=== PATIENT | female | born 1965 | race Caucasian/White ===

== ENCOUNTER 2017-01-08 16:34 | Emergency (ER) | payer OTHER ==
[~2017-01-08] VITALS: Ht 175.3 cm; Wt 79.4 kg
[~2017-01-08 16:34] MED LIST: LEVO0.124 PO; METO25TA PO
[2017-01-08 16:51] VITALS: BP 120/79
--- NOTE | 2017-01-08 18:40 | NUR ---
Patient to bed 03.
--- NOTE | 2017-01-08 18:45 | NUR ---
PT PRESENTS TO ER W/C/O LEFT HIP PAIN X2 WEEKS. PT DENIES ANY FALL OR TRAUMA. HX SLE. DENIES N/V/D; SKIN IS PINK/WARM/DRY; AAOX4 WITH EVEN AND STEADY GAIT; LUNGS CLEAR BL; HR EVEN AND REGULAR; PT DENIES ANY FEVER, CP, SOB, OR COUGH AT THIS TIME; PATIENT STATES PAIN OF 7/10 AT THIS TIME; VSS; PATIENT POSITIONED FOR COMFORT; HOB ELEVATED; BEDRAILS UP X2; BED DOWN. ER MD MADE AWARE OF PT STATUS.
--- NOTE | 2017-01-08 18:52 | NUR ---
Dr. York evaluating patient at bedside.
[2017-01-08] MEDS ORDERED: KETOROLAC 60 MG/2 ML VIAL IM ONE ×2 (18:55→19:06)
[2017-01-08 19:30] VITALS: BP 124/82
--- NOTE | 2017-01-08 19:30 | NUR ---
Patient discharged with v/s stable. Written and verbal after care instructions given and explained. Patient alert, oriented and verbalized understanding of instructions. Ambulatory with steady gait. All questions addressed prior to discharge. ID band removed. Patient advised to follow up with PMD. Rx of PREDNISONE 50MG AND MOTRIN 800MG given. Patient educated on indication of medication including possible reaction and side effects. Opportunity to ask questions provided and answered.
== END 2017-01-08 19:30 | disposition home or self-care (01) ==
LOC: MED 16:34
DX: S76.012A Strain of muscle, fascia and tendon of left hip, initial encounter (principal); I10 Essential (primary) hypertension; Z88.6 Allergy status to analgesic agent; Z88.8 Allergy status to other drugs, medicaments and biological substances; X58.XXXA Exposure to other specified factors, initial encounter; Y93.89 Activity, other specified; Y92.89 Other specified places as the place of occurrence of the external cause; Y99.8 Other external cause status
CPT/HCPCS: 73502; 96372; 99284; J1885

== ENCOUNTER 2017-02-23 18:50 | Emergency (ER) | payer OTHER ==
[~2017-02-23] VITALS: Ht 175.3 cm; Wt 79.1 kg
[2017-02-23 18:58] VITALS: BP 138/69
--- NOTE | 2017-02-23 20:10 | NUR ---
Patient to bed 07.
--- NOTE | 2017-02-23 20:19 | NUR ---
PATIENT PRESENTS TO ED WITH 52F BIB C/O POSTERIOR R KNEE PAIN X YESTERDAY WITH NAUSEA; PT STATES NO TRAUMA OR INJURY TO SITE AT THIS TIME. PT DENIES FALL. HX: TACHYCARIDA, LUPUS,THYROIDECTOMY PT STATES I WANT TO BE CHECK FOR DVT,DENIES V/D; SKIN IS PINK/WARM/DRY; AAOX4 WITH EVEN AND STEADY GAIT; LUNGS CLEAR BL; HR EVEN AND REGULAR; PT DENIES ANY FEVER, CP, SOB, OR COUGH AT THIS TIME; PATIENT STATES PAIN OF 9/10 AT THIS TIME; PATIENT POSITIONED FOR COMFORT; HOB ELEVATED; BEDRAILS UP X2; BED DOWN.
--- NOTE | 2017-02-23 20:46 | NUR ---
DR. FLORIAN AT BEDSIDE
[2017-02-23] MEDS ORDERED: oxyCODONE/APAP 5/325 MG 1 TAB TAB PO ONE (20:50)
[2017-02-23] MEDS ORDERED: ONDANSETRON 4 MG ODT PO ONE ×2 (20:50→22:20)
[2017-02-23 21:03] LABS: BASOPHILS # (AUTO) 0.2 K/uL (0.00-0.22); BASOPHILS % (AUTO) 2.2 % (0.0-2.0); EOSINOPHILS # (AUTO) 0.2 K/uL (0-0.4); EOSINOPHILS % (AUTO) 2.3 % (0.0-4.0); HEMOGLOBIN 14.6 g/dL (12.0-16.0); LYMPHOCYTES # (AUTO) 2.2 K/uL (2.5-16.5); LYMPHOCYTES % (AUTO) 30.1 % (20.5-51.1); MEAN CORPUSCULAR HEMOGLOBIN 31 pg (27-31); MEAN CORPUSCULAR HGB CONC 33 g/dL (33-37); MEAN CORPUSCULAR VOLUME 95 fL (80-94); MONOCYTES # (AUTO) 0.4 K/uL (0.8-1.0); MONOCYTES % (AUTO) 5.2 % (1.7-9.3); NEUTROPHILS # (AUTO) 4.5 K/uL (1.8-7.7); NEUTROPHILS % (AUTO) 60.2 % (42.2-75.2); PLATELET COUNT (AUTO) 228 K/uL (140-450); RED BLOOD CELL COUNT(AUTO) 4.65 MIL/uL (4.20-5.40); RED CELL DISTRIBUTION WIDTH 13.7 % (11.6-13.7); WHITE BLOOD COUNT (AUTO) 7.5 K/uL (4.8-10.8)
--- NOTE | 2017-02-23 21:16 | NUR ---
PILLOW CASE APPLIED IN BETWEEN LEGS, AND MAKE PT COMFORTABLE
--- NOTE | 2017-02-23 21:39 | NUR ---
INFORMED DR. FLORIAN PT IS STILL IN A LOT OF PAIN, US AT BEDSIDE
[2017-02-23] MEDS ORDERED: KETOROLAC 60 MG/2 ML VIAL IM ONE (21:40)
[2017-02-23 21:53] LABS: ANION GAP 11.3 (8-16); CALCIUM 8.5 mg/dL (8.5-10.1); CARBON DIOXIDE 29.9 mmol/L (21-32); CREATININE 0.9 mg/dL (0.6-1.3); POTASSIUM 4.2 mmol/L (3.5-5.1)
[2017-02-23 22:00] LABS: ALBUMIN 4.2 g/dL (3.4-5.0); TOTAL BILIRUBIN 0.2 mg/dL (0.0-1.0); TOTAL PROTEIN, SERUM 6.9 g/dL (6.4-8.2)
--- NOTE | 2017-02-23 22:05 | NUR ---
PT CRYING REQUEST DILAUDID WITH TORADOL PER PT SHE USED TO TAKE THAT WHEN SHE HAD LUPUS, WILL INFORM DR. FLORIAN
[2017-02-23] MEDS ORDERED: HYDROmorphone PFS 4 MG/ML SYR IM ONE ×2 (22:10→23:35)
--- NOTE | 2017-02-23 22:35 | NUR ---
DR. FLORIAN AT BEDSIDE
--- NOTE | 2017-02-23 22:40 | NUR ---
ANOTHER PILLOW PUT ON RIGHT LEG, PT AAO, FAMILY AT BEDSIDE
--- NOTE | 2017-02-23 23:52 | NUR ---
DR. FLORIAN AT BEDSIDE
[2017-02-24 00:24] VITALS: BP 117/60
--- NOTE | 2017-02-24 00:25 | NUR ---
Patient discharged with v/s stable. Written and verbal after care instructions given and explained. Patient alert, oriented and verbalized understanding of instructions. Ambulatory with steady gait. All questions addressed prior to discharge. ID band removed. Patient advised to follow up with PMD. Rx of DICLOFENAC AND NORCO given. Patient educated on indication of medication including possible reaction and side effects. Opportunity to ask questions provided and answered.
== END 2017-02-24 00:25 | disposition home or self-care (01) ==
LOC: MED 18:52
DX: M71.22 Synovial cyst of popliteal space [Baker], left knee (principal); I10 Essential (primary) hypertension; L93.0 Discoid lupus erythematosus; Z88.5 Allergy status to narcotic agent; Z88.8 Allergy status to other drugs, medicaments and biological substances; F17.210 Nicotine dependence, cigarettes, uncomplicated
CPT/HCPCS: 36415; 73562; 80053; 84550; 85025; 85379; 93971; 96372; 99285; J1170; J1885; Q0092; S0119

== ENCOUNTER 2017-03-18 19:31 | Emergency (ER) | payer OTHER ==
[~2017-03-18] VITALS: Ht 175.3 cm; Wt 77.1 kg
[2017-03-18 19:42] VITALS: BP 129/81
--- NOTE | 2017-03-18 20:52 | NUR ---
PATIENT LEFT WITHOUT BEING SEEN BY DR. NAILS. NO FURTHER CARE PROVIDED FOR PATIENT.
== END 2017-03-18 20:52 | disposition left against medical advice (07) ==
LOC: MED 19:31
DX: M79.604 Pain in right leg (principal); Z53.21 Procedure and treatment not carried out due to patient leaving prior to being seen by health care provider

== ENCOUNTER 2017-04-04 13:14 | Emergency (ER) | payer OTHER ==
[~2017-04-04] VITALS: Ht 172.7 cm; Wt 76.3 kg
--- NOTE | 2017-04-04 14:00 | NUR ---
NO ANSWER IN ER LOBBY
[2017-04-04 14:21] VITALS: BP 113/92
--- NOTE | 2017-04-04 15:35 | NUR ---
AMBULATED TO ER BED 5
--- NOTE | 2017-04-04 15:39 | NUR ---
Patient being evaluated by physician at bedside.
[2017-04-04] MEDS ORDERED: HYDROcodone/APAP 10/325 MG 1 TAB TAB PO PRN (15:40)
[2017-04-04] MEDS ORDERED: ONDANSETRON 4 MG ODT SL PRN (15:40)
[2017-04-04] MEDS ORDERED: LORazepam 2 MG/ML VIAL IM ONE (16:20)
--- NOTE | 2017-04-04 16:36 | NUR ---
Patient discharged with v/s stable. Written and verbal after care instructions given and explained. Patient alert, oriented and verbalized understanding of instructions. Ambulatory with steady gait WITH . All questions addressed prior to discharge. ID band removed. Patient advised to follow up with PMD. Rx of NORCO 5-325, KEFLEX, CORTISPORIN, AND ZOFRAN ODT given. Patient educated on indication of medication including possible reaction and side effects. Opportunity to ask questions provided and answered.
[2017-04-04 16:37] VITALS: BP 121/79
== END 2017-04-04 16:37 | disposition home or self-care (01) ==
LOC: MED 13:14
DX: H60.8X2 Other otitis externa, left ear (principal); H66.92 Otitis media, unspecified, left ear; I10 Essential (primary) hypertension; F41.9 Anxiety disorder, unspecified; Z88.5 Allergy status to narcotic agent; Z88.8 Allergy status to other drugs, medicaments and biological substances
CPT/HCPCS: 96372; 99283; J2060; S0119

== ENCOUNTER 2017-05-18 20:00 | Emergency (ER) | payer OTHER ==
[~2017-05-18] VITALS: Ht 175.3 cm; Wt 75.4 kg
[2017-05-18 20:08] VITALS: BP 122/74
[2017-05-18] MEDS ORDERED: ALBUTEROL SULFATE/IPRATROPIU 3 ML SOL IH ONE (20:30)
--- NOTE | 2017-05-18 20:30 | NUR ---
PT TAKEN TO OVERFLOW
--- NOTE | 2017-05-18 20:44 | NUR ---
RT WITH PATIENT FOR TREATMENT
--- NOTE | 2017-05-18 20:51 | NUR ---
52/F c/o toothache and bilateral ear pain x2 days and SOB today. Hx Lupus, hypothyroid. AOX4, no distress noted. Respirations even and unlabored, wheezing all throughout x5 lobes. Chest rises and falls symmetrically. VSS.
--- NOTE | 2017-05-18 21:00 | NUR ---
Patient being evaluated by Dr. Kraft in overflow.
--- NOTE | 2017-05-18 21:00 | NUR ---
Ramon lowry in ED - 05/18/[address] at [address] Kraft evaluating patient
[2017-05-18] MEDS ORDERED: oxyCODONE/APAP 5/325 MG 1 TAB TAB PO ONE ×2 (21:10→22:05)
[2017-05-18] MEDS ORDERED: predniSONE 20 MG TAB PO ONE (21:10)
--- NOTE | 2017-05-18 21:24 | NUR ---
PT TAKEN TO XRAY
--- NOTE | 2017-05-18 21:32 | NUR ---
Pt back from x-ray
[2017-05-18] MEDS ORDERED: HYDROmorphone PFS 2 MG/ML SYR IM ONE (22:05)
--- NOTE | 2017-05-18 22:14 | NUR ---
PHLEB WITH PT FOR LAB DRAWS
[2017-05-18 22:26] LABS: BASOPHILS # (AUTO) 0.2 K/uL (0.00-0.22); BASOPHILS % (AUTO) 1.6 % (0.0-2.0); EOSINOPHILS # (AUTO) 0.1 K/uL (0-0.4); EOSINOPHILS % (AUTO) 0.9 % (0.0-4.0); HEMATOCRIT 43.9 % (36-48); HEMOGLOBIN 14.9 g/dL (12.0-16.0); LYMPHOCYTES # (AUTO) 1.1 K/uL (2.5-16.5); LYMPHOCYTES % (AUTO) 9.9 % (20.5-51.1); MEAN CORPUSCULAR HEMOGLOBIN 32 pg (27-31); MEAN CORPUSCULAR HGB CONC 34 g/dL (33-37); MEAN CORPUSCULAR VOLUME 96 fL (80-94); MONOCYTES # (AUTO) 0.9 K/uL (0.8-1.0); MONOCYTES % (AUTO) 8.2 % (1.7-9.3); NEUTROPHILS # (AUTO) 8.7 K/uL (1.8-7.7); NEUTROPHILS % (AUTO) 79.4 % (42.2-75.2); PLATELET COUNT (AUTO) 198 K/uL (140-450); RED CELL DISTRIBUTION WIDTH 12.7 % (11.6-13.7)
[2017-05-18 22:35] LABS: ANION GAP 6.8 (8-16); CARBON DIOXIDE 29.7 mmol/L (21-32); CREATININE 0.8 mg/dL (0.6-1.3); POTASSIUM 3.5 mmol/L (3.5-5.1)
[2017-05-18 22:43] LABS: ALBUMIN 4.3 g/dL (3.4-5.0); TOTAL BILIRUBIN 0.4 mg/dL (0.0-1.0)
--- NOTE | 2017-05-18 22:51 | NUR ---
Dr. Kraft re-evaluating pt in overflow chair.
[2017-05-18 23:02] VITALS: BP 111/63
--- NOTE | 2017-05-18 23:02 | NUR ---
Patient discharged with v/s stable. Written and verbal after care instructions given and explained. Patient alert, oriented and verbalized understanding of instructions. Ambulatory with steady gait. All questions addressed prior to discharge. ID band removed. Patient advised to follow up with PMD. Rx of Prednisone 20mg, Augmentin 875mg, Tylenol with Codeine #4 given. Patient educated on indication of medication including possible reaction and side effects. Opportunity to ask questions provided and answered.
== END 2017-05-18 23:02 | disposition home or self-care (01) ==
LOC: MED 20:00
DX: J44.1 Chronic obstructive pulmonary disease with (acute) exacerbation (principal); K02.9 Dental caries, unspecified; K04.7 Periapical abscess without sinus; I10 Essential (primary) hypertension; F17.200 Nicotine dependence, unspecified, uncomplicated; Z71.6 Tobacco abuse counseling; Z90.89 Acquired absence of other organs; Z90.710 Acquired absence of both cervix and uterus; Z88.5 Allergy status to narcotic agent
CPT/HCPCS: 36415; 71010; 80053; 85025; 94640; 96372; 99285; J1170; J7512; J7620

== ENCOUNTER 2017-10-07 21:40 | Emergency (ER) | payer OTHER ==
[~2017-10-07] VITALS: Ht 175.3 cm; Wt 72.6 kg
[2017-10-07 21:43] VITALS: BP 105/66
--- NOTE | 2017-10-07 22:19 | NUR ---
PATIENT AMBULATED TO ER BED 2
--- NOTE | 2017-10-07 22:20 | NUR ---
52 Y/O F W/C/O LOWER ABD PAIN CRAMPING WITH DIARRHEA SINCE THIS MORNING. ALSO REPORTS BLISTERS X 1 WEEK. DENIES FEVERS/CHILLS. MED HX: LUPUS, TACHYCARDIA, THYROID REMOVED. RX: LEVOTHYROXINE, METOPROLOL,
[2017-10-07] MEDS ORDERED: NACL 0.9% 1,000 ML IV ONE (22:40)
[2017-10-07 23:03] LABS: BASOPHILS # (AUTO) 0.2 K/uL (0.00-0.22); EOSINOPHILS # (AUTO) 0.1 K/uL (0-0.4); EOSINOPHILS % (AUTO) 0.8 % (0.0-4.0); HEMATOCRIT 44.3 % (36-48); HEMOGLOBIN 14.6 g/dL (12.0-16.0); LYMPHOCYTES # (AUTO) 0.8 K/uL (2.5-16.5); MEAN CORPUSCULAR HEMOGLOBIN 31 pg (27-31); MEAN CORPUSCULAR HGB CONC 33 g/dL (33-37); MEAN CORPUSCULAR VOLUME 95 fL (80-94); MONOCYTES # (AUTO) 1.3 K/uL (0.8-1.0); NEUTROPHILS # (AUTO) 8.4 K/uL (1.8-7.7); NEUTROPHILS % (AUTO) 77.7 % (42.2-75.2); PLATELET COUNT (AUTO) 239 K/uL (140-450); RED BLOOD CELL COUNT(AUTO) 4.69 MIL/uL (4.20-5.40); RED CELL DISTRIBUTION WIDTH 11.9 % (11.6-13.7); WHITE BLOOD COUNT (AUTO) 10.8 K/uL (4.8-10.8)
[2017-10-07] MEDS ORDERED: METOCLOPRAMIDE 10 MG/2 ML INJ VIAL IVP ONE (23:05)
[2017-10-07] MEDS ORDERED: ONDANSETRON 4 MG/2 ML VIAL IVP ONE (23:05)
[2017-10-07] MEDS ORDERED: METOCLOPRAMIDE 10 MG/2 ML INJ VIAL ONE (23:09)
--- NOTE | 2017-10-07 23:15 | NUR ---
PT STATES HER ABD STILL HURST 02/03, ER MADE AWARE.
[2017-10-07 23:17] LABS: ANION GAP 15.2 (8-16); CARBON DIOXIDE 26.6 mmol/L (21-32); CREATININE 1.1 mg/dL (0.6-1.3); POTASSIUM 3.8 mmol/L (3.5-5.1)
[2017-10-07] MEDS ORDERED: methylPREDNISolone SS 125 MG/2 ML VIAL IVP ONE (23:20)
[2017-10-07 23:22] LABS: ALBUMIN 4.3 g/dL (3.4-5.0); LYMPHOCYTES % (AUTO) 7.5 % (20.5-51.1); TOTAL BILIRUBIN 0.7 mg/dL (0.0-1.0)
[2017-10-07] MEDS ORDERED: fentaNYL 0.05 MG/ML VIAL IVP ONE (23:50)
[2017-10-08 00:26] LABS: APPEARANCE,URINE SL CLOUDY (CLEAR); BILIRUBIN,URINE NEGATIVE (NEGATIVE); BLOOD, URINE NEGATIVE (NEGATIVE); COLOR,URINE YELLOW (YELLOW); LEUKOCYTE ESTERASE ,URINE NEGATIVE (NEGATIVE); NITRITE, URINE NEGATIVE (NEGATIVE); PH,URINE 5.5 (5.0-9.0); UGLUCOSE NEGATIVE (NEGATIVE)
--- NOTE | 2017-10-08 00:35 | NUR ---
PT STAYS HER PAIN HAS DECREASED 11/04. ER MD MADE AWARE.
[2017-10-08 01:13] VITALS: BP 114/79
--- NOTE | 2017-10-08 01:13 | NUR ---
Patient discharged with v/s stable. Written and verbal after care instructions given and explained. Patient verbalized understanding. Ambulatory with steady gait. All questions addressed prior to discharge. Advised to follow up with PMD.
== END 2017-10-08 01:13 | disposition home or self-care (01) ==
LOC: MED 22:16
DX: R19.7 Diarrhea, unspecified (principal); R10.30 Lower abdominal pain, unspecified; R11.0 Nausea; I10 Essential (primary) hypertension; Z88.5 Allergy status to narcotic agent; Z88.8 Allergy status to other drugs, medicaments and biological substances
CPT/HCPCS: 36415; 80053; 81003; 85025; 96361; 96374; 96375; 99284; J2765; J2930; J3010; 81025

== ENCOUNTER 2017-12-10 20:28 | Emergency (ER) | payer OTHER ==
[~2017-12-10] VITALS: Ht 175.3 cm; Wt 75.5 kg
[2017-12-10 20:35] VITALS: BP 135/96
--- NOTE | 2017-12-10 20:45 | NUR ---
ASSUMED CARE OF PT AT THIS TIME. C/O LEFT SIDED DENTAL X 3 DAYS. AAOX4 WITH EVEN AND STEADY GAIT; PATIENT STATES PAIN OF 8/10 AT THIS TIME; VSS; PATIENT POSITIONED FOR COMFORT; HOB ELEVATED; BEDRAILS UP X2; BED DOWN. ER MD MADE AWARE OF PT STATUS. WILL CONTINUE TO MONITOR.
[2017-12-10] MEDS ORDERED: KETOROLAC 60 MG/2 ML VIAL IM ONE (20:55)
[2017-12-10 22:04] VITALS: BP 135/96
== END 2017-12-10 22:04 | disposition home or self-care (01) ==
LOC: MED 20:28
DX: K04.7 Periapical abscess without sinus (principal); I10 Essential (primary) hypertension; E07.9 Disorder of thyroid, unspecified; F17.210 Nicotine dependence, cigarettes, uncomplicated; Z88.6 Allergy status to analgesic agent; Z88.8 Allergy status to other drugs, medicaments and biological substances
CPT/HCPCS: 96372; 99283; J1885

== ENCOUNTER 2018-09-21 18:59 | Emergency (ER) | payer OTHER ==
[~2018-09-21] VITALS: Ht 170.2 cm; Wt 72.6 kg
[2018-09-21 19:30] VITALS: BP 120/74
--- NOTE | 2018-09-21 21:13 | NUR ---
PT AMBULATED TO BED 4
[2018-09-21 22:35] VITALS: BP 122/71
--- NOTE | 2018-09-21 22:35 | NUR ---
Patient discharged with v/s stable. Written and verbal after care instructions given and explained. Patient alert, oriented and verbalized understanding of instructions. Ambulatory with steady gait. All questions addressed prior to discharge. ID band removed. Patient advised to follow up with PMD. Rx of MOTRIN AND AMOXICILLIN given. Patient educated on indication of medication including possible reaction and side effects. Opportunity to ask questions provided and answered.
== END 2018-09-21 22:35 | disposition home or self-care (01) ==
LOC: MED 18:59
DX: S93.601A Unspecified sprain of right foot, initial encounter (principal); K04.7 Periapical abscess without sinus; I10 Essential (primary) hypertension; Z79.899 Other long term (current) drug therapy; Z88.5 Allergy status to narcotic agent; Z88.8 Allergy status to other drugs, medicaments and biological substances; V49.9XXA Car occupant (driver) (passenger) injured in unspecified traffic accident, initial encounter; Y93.89 Activity, other specified; Y92.89 Other specified places as the place of occurrence of the external cause; Y99.8 Other external cause status
CPT/HCPCS: 73630; 96372; 99283

== ENCOUNTER 2022-01-08 21:13 | Emergency (ER) | payer MEDICAID, OTHER ==
[~2022-01-08] VITALS: Ht 175.3 cm; Wt 63.5 kg
[2022-01-08 21:25] VITALS: BP 122/88
--- NOTE | 2022-01-08 21:32 | NUR ---
patient to the bathroom for urine collection
--- NOTE | 2022-01-08 23:16 | NUR ---
CALLED FOR PATIENT NO ANSWER
--- NOTE | 2022-01-08 23:48 | NUR ---
CALLED FOR PATIENT NO ANSWER
--- NOTE | 2022-01-08 23:48 | NUR ---
PATIENT LEFT WITHOUT BEING SEEN BY DR. CAMARILLO. NO FURTHER CARE PROVIDED FOR PATIENT.
== END 2022-01-08 23:48 | disposition left against medical advice (07) ==
LOC: MED 21:13
DX: N23 Unspecified renal colic (principal); Z53.21 Procedure and treatment not carried out due to patient leaving prior to being seen by health care provider
CPT/HCPCS: 81002; 81025

== ENCOUNTER 2022-01-24 08:06 | Emergency (ER) | payer MEDICAID ==
[~2022-01-24] VITALS: Ht 167.6 cm; Wt 66.2 kg
[2022-01-24 08:07] VITALS: BP 107/77
--- NOTE | 2022-01-24 08:15 | NUR ---
56 Y/O [facility] C/O SUDDEN ONSET CP WHILE SMOKING CIGARETTE AND DRINKING COFFEE. WHEN MEDICS ARRIVED, PT WAS IN SVT WITH HR IN 180S-190. PT WITH HX OF SVT. ATTEMPTED VASOVAGAL WITHOUT RELIEF. MEDICS GAVE 12MG ADENOSINE, NO CHANGE, GAVE ANOTHER 12MG ADENOSINE WHICH CONVERTED HER TO SINUS TACH. PT NOW COMPLAINING OF MILD DULL CHEST PAIN RADIATING TO ALEXUS SHOULDERS. PT ALSO C/O GENERALIZED BODY PAIN, ABD PAIN, PARASITES IN RECTUM WITH BLEEDING. ABD IS FLAT, SOFT, AND TENDER ON PALPATION. PT DENIES DYSURIA/GASTRO S/S. PT A/O X4 WITH EVEN AND UNLABORED RESPIRATIONS. PMH: SVT, LUPUS, RECOVERING OPIOD ADDICT ALLERGIES: MORPHINE, GABAPENTIN, VISTARIL
--- NOTE | 2022-01-24 08:19 | NUR ---
DR PIZARRO AT BEDSIDE EVALUATING PT
--- NOTE | 2022-01-24 08:24 | NUR ---
Female Special Educator accompanied female patient for Rectal Exam.
[2022-01-24] MEDS ORDERED: NACL 0.9% 1,000 ML IV SCH (08:25)
[2022-01-24] MEDS ORDERED: KETOROLAC 30 MG/ML VIAL IVP ONE (08:25)
[2022-01-24 08:43] LABS: BASOPHILS % (AUTO) 0.6 % (0.0-2.0); EOSINOPHILS # (AUTO) 0.1 K/uL (0-0.4); EOSINOPHILS % (AUTO) 1.6 % (0.0-4.0); HEMATOCRIT 41.9 % (36-48); HEMOGLOBIN 14.3 g/dL (12.0-16.0); LYMPHOCYTES # (AUTO) 1.8 K/uL (2.5-16.5); LYMPHOCYTES % (AUTO) 34.6 % (20.5-51.1); MEAN CORPUSCULAR HEMOGLOBIN 32 pg (27-31); MEAN CORPUSCULAR HGB CONC 34 g/dL (33-37); MEAN CORPUSCULAR VOLUME 92.9 fL (80-94); MONOCYTES # (AUTO) 0.5 K/uL (0.8-1.0); MONOCYTES % (AUTO) 8.8 % (1.7-9.3); NEUTROPHILS # (AUTO) 2.8 K/uL (1.8-7.7); NEUTROPHILS % (AUTO) 54.4 % (42.2-75.2); PLATELET COUNT (AUTO) 315 K/uL (140-450); RED BLOOD CELL COUNT(AUTO) 4.51 MIL/uL (4.20-5.40); RED CELL DISTRIBUTION WIDTH 14.1 % (11.6-13.7); WHITE BLOOD COUNT (AUTO) 5.2 K/uL (4.8-10.8)
--- NOTE | 2022-01-24 08:43 | NUR ---
PT BACK FROM CT AND CONNECTED TO MONITOR
[2022-01-24 09:15] LABS: ALBUMIN 3.9 g/dL (3.4-5.0); ANION GAP 12.1 (8-16); ASPARTATE AMINOTRANSFERASE 23 U/L (15-37); CARBON DIOXIDE 27.5 mmol/L (21-32); CHLORIDE 104 mmol/L (98-107); CREATININE 0.6 mg/dL (0.6-1.3); GFR ARICAN-AMERICAN 133 mL/min (>90); GLUCOSE 138 mg/dL (74-106); LIPASE 176 U/L (73-393); POTASSIUM 3.6 mmol/L (3.5-5.1); SODIUM SERUM 140 mmol/L (136-145); TOTAL BILIRUBIN 0.5 mg/dL (0.0-1.0); UREA NITROGEN, BLOOD 17 mg/dL (7-18)
[2022-01-24 09:24] LABS: APPEARANCE,URINE CLEAR (CLEAR); BILIRUBIN,URINE NEGATIVE (NEGATIVE); BLOOD, URINE NEGATIVE (NEGATIVE); COLOR,URINE YELLOW (YELLOW); LEUKOCYTE ESTERASE ,URINE NEGATIVE (NEGATIVE); NITRITE, URINE NEGATIVE (NEGATIVE); UGLUCOSE NEGATIVE (NEGATIVE)
--- NOTE | 2022-01-24 09:43 | NUR ---
PT DENIES CHEST PAIN AT THIS TIME. AWAITING D/C PAPERWORK
--- NOTE | 2022-01-24 10:15 | NUR ---
CALLED 2 TIME LEFT V-MAIL FOR PT BOX SPINNER-N/A. NORMA CALLED FOR PICK
[2022-01-24 10:22] VITALS: BP 117/77
[2022-01-24] MEDS ORDERED: METO25TA PO (10:30)
--- NOTE | 2022-01-24 10:30 | NUR ---
IV removed, catheter intact and site benign. Applied folded 4x4 gauze and tape to stop bleeding.
--- NOTE | 2022-01-24 10:34 | NUR ---
Patient discharged with v/s stable. Written and verbal after care instructions ABOUT SVT AND ABDOMINAL PAIN given and explained. Patient alert, oriented and verbalized understanding of instructions. Ambulatory with steady gait. All questions addressed prior to discharge. ID band removed. Patient advised to follow up with PMD. Rx of METOPROLOL given. Patient educated on indication of medication including possible reaction and side effects. Opportunity to ask questions provided and answered. [facility] TO [facility]
== END 2022-01-24 10:34 | disposition home or self-care (01) ==
LOC: MED 08:06
DX: I47.1 Supraventricular tachycardia (principal); R10.9 Unspecified abdominal pain; R11.0 Nausea
CPT/HCPCS: 36415; 71045; 74176; 80053; 81003; 83690; 84484; 85025; 93005; 96361; 96374; 99285; J1885; J7030

== ENCOUNTER 2022-02-13 14:50 | Emergency (ER) | payer MEDICAID ==
[~2022-02-13] VITALS: Ht 175.3 cm; Wt 63.3 kg
[2022-02-13 15:02] VITALS: BP 102/61
--- NOTE | 2022-02-13 15:09 | NUR ---
PATIENT AMBULATED TO BED 9
[2022-02-13] MEDS ORDERED: LORazepam 0.5 MG TAB PO ONE (15:50)
[2022-02-13] MEDS ORDERED: BACTO TP (15:51)
[2022-02-13] MEDS ORDERED: DOXY100T9 PO (15:51)
--- NOTE | 2022-02-13 16:00 | NUR ---
56 y/o female c/o of multiple wounds to left side of face, left achilles x 2 weeks. Has multiple wounds scabbed over to back of neck, left thumb, chin, and right elbow. Pt. denies nvd, cp, sob. Reports meth use x 4 days ago. Reports feeling anxious and worried about wounds becoming infected. Advised pt. to keep areas clean, denies touching or scratching.
[2022-02-13 16:50] VITALS: BP 102/61
--- NOTE | 2022-02-13 16:50 | NUR ---
Patient discharged with v/s stable. Written and verbal after care instructions given and explained. Patient alert, oriented and verbalized understanding of instructions. Ambulatory with steady gait. All questions addressed prior to discharge. ID band removed. Patient advised to follow up with PMD. Rx of Doxycycline, Mupirocin given. Patient educated on indication of medication including possible reaction and side effects. Opportunity to ask questions provided and answered.
== END 2022-02-13 16:50 | disposition home or self-care (01) ==
LOC: MED 14:50
DX: S01.80XA Unspecified open wound of other part of head, initial encounter (principal); L08.9 Local infection of the skin and subcutaneous tissue, unspecified; I47.1 Supraventricular tachycardia; F15.90 Other stimulant use, unspecified, uncomplicated; Z88.5 Allergy status to narcotic agent; Z88.8 Allergy status to other drugs, medicaments and biological substances; Z79.899 Other long term (current) drug therapy; X58.XXXA Exposure to other specified factors, initial encounter; Y93.89 Activity, other specified; Y92.89 Other specified places as the place of occurrence of the external cause; Y99.8 Other external cause status
CPT/HCPCS: 81002; 81025; 99283